=== PATIENT | female | born 1950 | race Caucasian/White ===

== ENCOUNTER 2017-05-05 10:54 | Emergency (ER) | payer MEDICARE, MEDICAID ==
[~2017-05-05] VITALS: Ht 160 cm; Wt 68.4 kg
[2017-05-05 13:58] LABS: HEMATOCRIT 48.4 % (34.6-47.8); WHITE BLOOD COUNT 12.4 x10^3/uL (3.4-10)
[2017-05-05] MEDS ORDERED: DIPHENHYDRAMINE 50 MG/ML, 1ML IM ONE (14:00)
[2017-05-05] MEDS ORDERED: METOCLOPRAMIDE 5 MG/ML, 2ML IM ONE (14:00)
[2017-05-05 14:19] LABS: BLOOD UREA NITROGEN 35 mg/dL (7-18)
[2017-05-05 14:22] LABS: IS PT STATUS REG ER OR PRE ER? YES
[2017-05-05] MEDS ORDERED: SODIUM CHLORIDE FLUSH 10ML SYR IVF ONE (14:30)
[2017-05-05 16:11] VITALS: BP 126/82
== END 2017-05-05 17:11 | disposition home or self-care (01) ==
LOC: ED 17:05
DX: J44.9 Chronic obstructive pulmonary disease, unspecified (principal); J20.8 Acute bronchitis due to other specified organisms; B96.89 Other specified bacterial agents as the cause of diseases classified elsewhere; H10.021 Other mucopurulent conjunctivitis, right eye; M32.9 Systemic lupus erythematosus, unspecified; Z87.891 Personal history of nicotine dependence
CPT/HCPCS: 36415; 71020; 80048; 82040; 83605; 83880; 84484; 85025; 87040; 87077; 87186; 93005; 99285

== ENCOUNTER 2017-05-06 08:04 | Inpatient (IN) | payer MEDICARE, MEDICAID ==
[~2017-05-06] VITALS: Ht 160 cm; Wt 77.6 kg
[2017-05-06] MEDS ORDERED: SODIUM CHLORIDE 0.9% 1,000 ML IV ONE ×2 (08:29→09:28)
[2017-05-06] MEDS ORDERED: SODIUM CHLORIDE 0.9% 1,000ML IVBOLUS ONE (08:30)
[2017-05-06] MEDS ORDERED: ACETAMINOPHEN 500 MG TABLET PO ONE (08:30)
[2017-05-06 08:58] LABS: HEMATOCRIT 46.3 % (34.6-47.8); HEMOGLOBIN 15.5 g/dL (11.7-16.4); WHITE BLOOD COUNT 17.6 x10^3/uL (3.4-10)
[2017-05-06] MEDS ORDERED: CEFTRIAXONE PMX 1GM/50ML 50 ML IVPB ONE (09:00)
[2017-05-06 09:06] LABS: ASPARTATE AMINO TRANSFERASE 12 U/L (15-37); BLOOD UREA NITROGEN 26 mg/dL (7-18)
[2017-05-06] MEDS ORDERED: CEFTRIAXONE PMX 1GM/50ML 50 ML ONE ×2 (09:10→10:26)
[2017-05-06] MEDS ORDERED: ACETAMINOPHEN 500 MG TABLET ONE (09:10)
[2017-05-06] MEDS ORDERED: SODIUM CHLORIDE FLUSH 10ML SYR IVF PRN (09:30)
[2017-05-06] MEDS: SODIUM CHLORIDE 0.9% 1,000 ML IV SCH ×2 (09:47→22:21)
[2017-05-06] MEDS ORDERED: DOCUSATE 100 MG CAPSULE PO PRN (10:00)
[2017-05-06] MEDS ORDERED: ONDANSETRON 2MG/ML, 2ML IVPush PRN (10:00)
[2017-05-06] MEDS ORDERED: LABETALOL 5MG/ML, 20ML IVPush PRN (10:00)
[2017-05-06] MEDS ORDERED: ENALAPRILAT 1.25 MG/ML, 2ML IVPush PRN (10:00)
[2017-05-06] MEDS ORDERED: CEFTRIAXONE PMX 1GM/50ML 50 ML IV SCH (10:00)
[2017-05-06] MEDS ORDERED: ONDANSETRON ODT 4 MG PO PRN (10:00)
[2017-05-06] MEDS: CEFTRIAXONE PMX 2GM/50ML 50 ML IV SCH (10:30)
[2017-05-06] MEDS: HYDROXYCHLOROQUINE 200 MG TABLET PO SCH (10:59)
[2017-05-06] MEDS ORDERED: ALBUTEROL SULFATE 2.5 MG/3 ML NPPB PRN (11:00)
[2017-05-06 13:55] VITALS: BP 112/79
[2017-05-06] MEDS: ERYTHROMYCIN OPHTH 0.5%, 1GM EACHEYE SCH ×2 (16:00→22:15)
[2017-05-06 17:45] LABS: RAPID INFLUENZA A Negative (Negative); RAPID INFLUENZA B Negative (Negative)
[2017-05-06] MEDS: METOPROLOL TARTRATE 50 MG TABLET PO SCH (19:26)
[2017-05-06 19:27] VITALS: BP 124/78
[2017-05-06 21:59] VITALS: BP 125/80
[2017-05-06] MEDS: GUAIFENESIN/DM 200-20MG, 10ML UDC PO PRN (22:15)
[2017-05-06] MEDS: OXYBUTYNIN CHLORIDE 5 MG TABLET PO SCH (22:15)
[2017-05-06] MEDS: ACETAMINOPHEN 325 MG TABLET PO PRN (22:22)
[2017-05-07 02:18] VITALS: BP 126/81
[2017-05-07 03:57] VITALS: BP 89/59
[2017-05-07] MEDS: SODIUM CHLORIDE 0.9% 1,000 ML IV SCH ×2 (05:47→09:36)
[2017-05-07 06:08] LABS: HEMATOCRIT 40.4 % (34.6-47.8); HEMOGLOBIN 13.5 g/dL (11.7-16.4); WHITE BLOOD COUNT 13.2 x10^3/uL (3.4-10)
[2017-05-07 06:28] LABS: BLOOD UREA NITROGEN 20 mg/dL (7-18)
[2017-05-07 07:53] VITALS: BP 143/92
[2017-05-07] MEDS: METOPROLOL TARTRATE 50 MG TABLET PO SCH ×2 (08:15→17:08)
[2017-05-07] MEDS: SENNA/DOCUSATE TABLET PO SCH (09:00)
[2017-05-07] MEDS: FUROSEMIDE 40 MG TABLET PO SCH (09:29)
[2017-05-07] MEDS: HYDROXYCHLOROQUINE 200 MG TABLET PO SCH (09:30)
[2017-05-07] MEDS: AZITHROMYCIN 500 MG in SODIUM CHLORIDE 0.9% 250 ML IV SCH (09:30)
[2017-05-07] MEDS: OXYBUTYNIN CHLORIDE 5 MG TABLET PO SCH ×2 (09:30→21:42)
[2017-05-07] MEDS: GUAIFENESIN/DM 200-20MG, 10ML UDC PO PRN ×2 (09:30→23:58)
[2017-05-07] MEDS: ERYTHROMYCIN OPHTH 0.5%, 1GM EACHEYE SCH ×3 (09:30→21:42)
[2017-05-07] MEDS: CEFTRIAXONE PMX 2GM/50ML 50 ML IV SCH (10:30)
[2017-05-07 14:23] VITALS: BP 139/82
[2017-05-07 18:40] VITALS: BP 116/82
[2017-05-08 01:43] VITALS: BP 135/75
[2017-05-08] MEDS: SODIUM CHLORIDE 0.9% 1,000 ML IV SCH ×3 (01:47→23:00)
[2017-05-08] MEDS: METOPROLOL TARTRATE 50 MG TABLET PO SCH ×2 (05:55→18:11)
[2017-05-08 07:29] VITALS: BP 107/77
[2017-05-08] MEDS: SENNA/DOCUSATE TABLET PO SCH (09:00)
[2017-05-08] MEDS: FUROSEMIDE 40 MG TABLET PO SCH (09:00)
[2017-05-08] MEDS: OXYBUTYNIN CHLORIDE 5 MG TABLET PO SCH ×2 (09:21→19:36)
[2017-05-08] MEDS: HYDROXYCHLOROQUINE 200 MG TABLET PO SCH (09:21)
[2017-05-08] MEDS: ERYTHROMYCIN OPHTH 0.5%, 1GM EACHEYE SCH ×3 (09:22→19:36)
[2017-05-08] MEDS: AZITHROMYCIN 500 MG in SODIUM CHLORIDE 0.9% 250 ML IV SCH (09:22)
[2017-05-08] MEDS: CEFTRIAXONE PMX 2GM/50ML 50 ML IV SCH (10:59)
[2017-05-08 12:14] VITALS: BP 115/79
[2017-05-08] MEDS: PIPERACILLIN/TAZO/PMX 3.375GM 50 ML IV SCH ×2 (15:18→22:29)
[2017-05-08 18:32] VITALS: BP 148/81
[2017-05-08] MEDS: GUAIFENESIN/DM 200-20MG, 10ML UDC PO PRN (19:36)
[2017-05-08] MEDS: ACETAMINOPHEN 325 MG TABLET PO PRN (19:37)
[2017-05-09 01:41] VITALS: BP 113/74
[2017-05-09] MEDS: GUAIFENESIN/DM 200-20MG, 10ML UDC PO PRN ×2 (02:40→15:20)
[2017-05-09] MEDS: SODIUM CHLORIDE 0.9% 1,000 ML IV SCH ×2 (03:38→15:20)
[2017-05-09] MEDS: PIPERACILLIN/TAZO/PMX 3.375GM 50 ML IV SCH ×4 (03:38→21:10)
[2017-05-09 05:47] LABS: HEMOGLOBIN 12.6 g/dL (11.7-16.4); WHITE BLOOD COUNT 9.5 x10^3/uL (3.4-10)
[2017-05-09] MEDS: METOPROLOL TARTRATE 50 MG TABLET PO SCH ×2 (06:45→17:27)
[2017-05-09 08:05] VITALS: BP 109/81
[2017-05-09] MEDS: SENNA/DOCUSATE TABLET PO SCH (09:00)
[2017-05-09] MEDS: OXYBUTYNIN CHLORIDE 5 MG TABLET PO SCH ×2 (09:38→21:10)
[2017-05-09] MEDS: FUROSEMIDE 40 MG TABLET PO SCH (09:38)
[2017-05-09] MEDS: HYDROXYCHLOROQUINE 200 MG TABLET PO SCH (09:39)
[2017-05-09] MEDS: ERYTHROMYCIN OPHTH 0.5%, 1GM EACHEYE SCH ×3 (09:39→21:11)
[2017-05-09 12:20] VITALS: BP 123/89
[2017-05-09] MEDS: ENOXAPARIN 40 MG/0.4 ML SQ SCH (15:21)
[2017-05-09 18:25] VITALS: BP 104/75
[2017-05-09] MEDS: ACETAMINOPHEN 325 MG TABLET PO PRN (21:10)
[2017-05-10 01:18] VITALS: BP 113/65
[2017-05-10] MEDS: SODIUM CHLORIDE 0.9% 1,000 ML IV SCH ×2 (03:00→15:56)
[2017-05-10] MEDS: PIPERACILLIN/TAZO/PMX 3.375GM 50 ML IV SCH ×4 (03:00→20:52)
[2017-05-10] MEDS: GUAIFENESIN/DM 200-20MG, 10ML UDC PO PRN ×2 (05:26→20:52)
[2017-05-10] MEDS: METOPROLOL TARTRATE 50 MG TABLET PO SCH ×2 (07:31→15:56)
[2017-05-10] MEDS: HYDROXYCHLOROQUINE 200 MG TABLET PO SCH (09:19)
[2017-05-10] MEDS: SENNA/DOCUSATE TABLET PO SCH (09:19)
[2017-05-10] MEDS: OXYBUTYNIN CHLORIDE 5 MG TABLET PO SCH ×2 (09:19→20:51)
[2017-05-10] MEDS: FUROSEMIDE 40 MG TABLET PO SCH (09:20)
[2017-05-10] MEDS: ERYTHROMYCIN OPHTH 0.5%, 1GM EACHEYE SCH ×3 (09:20→20:52)
[2017-05-10 10:54] VITALS: BP 143/89
[2017-05-10] MEDS: ENOXAPARIN 40 MG/0.4 ML SQ SCH (15:56)
[2017-05-10 16:03] VITALS: BP 125/77
[2017-05-10 18:48] VITALS: BP 138/86
[2017-05-11 01:48] VITALS: BP 116/81
[2017-05-11] MEDS: SODIUM CHLORIDE 0.9% 1,000 ML IV SCH ×2 (02:25→11:00)
[2017-05-11] MEDS: GUAIFENESIN/DM 200-20MG, 10ML UDC PO PRN ×4 (02:49→22:25)
[2017-05-11] MEDS: PIPERACILLIN/TAZO/PMX 3.375GM 50 ML IV SCH ×3 (02:50→15:35)
[2017-05-11 06:50] VITALS: BP 124/91
[2017-05-11] MEDS: FUROSEMIDE 40 MG TABLET PO SCH (09:00)
[2017-05-11] MEDS: SENNA/DOCUSATE TABLET PO SCH (09:00)
[2017-05-11] MEDS: OXYBUTYNIN CHLORIDE 5 MG TABLET PO SCH ×2 (09:04→21:07)
[2017-05-11] MEDS: METOPROLOL TARTRATE 50 MG TABLET PO SCH ×2 (09:04→17:19)
[2017-05-11] MEDS: ERYTHROMYCIN OPHTH 0.5%, 1GM EACHEYE SCH ×3 (09:04→21:07)
[2017-05-11] MEDS: HYDROXYCHLOROQUINE 200 MG TABLET PO SCH (09:04)
[2017-05-11 15:27] VITALS: BP 141/88
[2017-05-11] MEDS: ENOXAPARIN 40 MG/0.4 ML SQ SCH (15:36)
[2017-05-11 17:16] VITALS: BP 117/73
[2017-05-11 19:12] VITALS: BP 123/80
[2017-05-11] MEDS: PIPERACILLIN/TAZO 3.375 GM in SODIUM CHLORIDE 0.9% 50 ML IV SCH (21:07)
[2017-05-12 00:41] VITALS: BP 143/89
[2017-05-12] MEDS: PIPERACILLIN/TAZO 3.375 GM in SODIUM CHLORIDE 0.9% 50 ML IV SCH ×2 (03:31→09:13)
[2017-05-12] MEDS: GUAIFENESIN/DM 200-20MG, 10ML UDC PO PRN ×2 (04:43→11:34)
[2017-05-12] MEDS: METOPROLOL TARTRATE 50 MG TABLET PO SCH (05:57)
[2017-05-12 07:23] VITALS: BP 151/92
[2017-05-12] MEDS: SENNA/DOCUSATE TABLET PO SCH (08:05)
[2017-05-12] MEDS: FUROSEMIDE 40 MG TABLET PO SCH (08:05)
[2017-05-12] MEDS: ERYTHROMYCIN OPHTH 0.5%, 1GM EACHEYE SCH (08:06)
[2017-05-12] MEDS: HYDROXYCHLOROQUINE 200 MG TABLET PO SCH (08:06)
[2017-05-12] MEDS: OXYBUTYNIN CHLORIDE 5 MG TABLET PO SCH (08:06)
[2017-05-12] MEDS ORDERED: PIPE3.373 IV (08:41)
[2017-05-12] MEDS ORDERED: HYDR200T5 PO (08:41)
[2017-05-12] MEDS ORDERED: FURO40TA6 PO (08:41)
[2017-05-12] MEDS ORDERED: ALBU2.5V NPPB (08:41)
[2017-05-12] MEDS ORDERED: TRAM50TA2 PO (08:41)
[2017-05-12] MEDS ORDERED: METO50TA82 PO (08:41)
[2017-05-12] MEDS ORDERED: OXYB5TAB7 PO (08:41)
[2017-05-12 12:15] VITALS: BP 140/88
== END 2017-05-12 13:00 | DRG 871 ==
LOC: ED 08:27 → EDIP 09:28 → 4NOR 11:25
PROVIDERS: ADMIT Hospitalist; ATTEND Family Medicine
PROC: 02HV33Z Insertion of Infusion Device into Superior Vena Cava, Percutaneous Approach (ICD-10-PCS; principal; 2017-05-10)
PROC: B548ZZA Ultrasonography of Superior Vena Cava, Guidance (ICD-10-PCS; 2017-05-10)
PROC: B5181ZA Fluoroscopy of Superior Vena Cava using Low Osmolar Contrast, Guidance (ICD-10-PCS; 2017-05-10)
DX: A41.9 Sepsis, unspecified organism (principal); E43 Unspecified severe protein-calorie malnutrition; R65.21 Severe sepsis with septic shock; N17.9 Acute kidney failure, unspecified; J96.11 Chronic respiratory failure with hypoxia; N18.3 Chronic kidney disease, stage 3 (moderate); Z99.81 Dependence on supplemental oxygen; J15.9 Unspecified bacterial pneumonia; J44.0 Chronic obstructive pulmonary disease with (acute) lower respiratory infection; L93.0 Discoid lupus erythematosus; N32.81 Overactive bladder; F17.210 Nicotine dependence, cigarettes, uncomplicated; M19.90 Unspecified osteoarthritis, unspecified site; I12.9 Hypertensive chronic kidney disease with stage 1 through stage 4 chronic kidney disease, or unspecified chronic kidney disease; Z66 Do not resuscitate; K42.9 Umbilical hernia without obstruction or gangrene; I87.2 Venous insufficiency (chronic) (peripheral); H10.021 Other mucopurulent conjunctivitis, right eye; Z83.3 Family history of diabetes mellitus; Z82.49 Family history of ischemic heart disease and other diseases of the circulatory system; Z59.0 Homelessness; Z68.30 Body mass index [BMI] 30.0-30.9, adult; Z79.899 Other long term (current) drug therapy; Z79.1 Long term (current) use of non-steroidal anti-inflammatories (NSAID); Z79.2 Long term (current) use of antibiotics
CPT/HCPCS: 36415; 36569; 71010; 76937; 77001; 80048; 80053; 81001; 83605; 84145; 85025; 87040; 87070; 87086; 87205; 87324; 87400; 93005; 94640; 96365; J0456; J0696; J1650; J2543; J7613; C1751; J7030; J7050